=== PATIENT | male | born 1995 | race Caucasian/White ===

== ENCOUNTER 2021-07-29 17:17 | Emergency (ER) | payer OTHER ==
[~2021-07-29] VITALS: Ht 190.5 cm; Wt 100.0 kg
[2021-07-29] MEDS ORDERED: ACETAMINOPHEN/CODEINE 300-30 MG TABLET PO ONE (19:30)
[2021-07-29 20:45] VITALS: BP 147/71
== END 2021-07-29 21:00 | disposition home or self-care (01) ==
LOC: EMS 17:20
DX: N36.9 Urethral disorder, unspecified (principal)
CPT/HCPCS: 99282; 99283